=== PATIENT | female | born 1995 | race Caucasian/White ===

== ENCOUNTER 2018-07-25 13:03 | Outpatient (RCR) | payer OTHER ==
[~2018-07-25 13:03] MED LIST: MOTRIN 600600 MG/TAB PO; NO HOME MEDICATIONS; PERCOCET 325 MG1 TA2 PO; PRENATAL1 TA1 PO; TESSALON P100 MG/CAP PO; ZOFRAN INJ4 MG/2 ML IV; ZOFRAN ODT4 MG PO
== END 2018-10-23 | disposition home or self-care (01) ==
LOC: WSOH
DX: S51.801A Unspecified open wound of right forearm, initial encounter (principal); Y04.1XXA Assault by human bite, initial encounter; Y93.F9 Activity, other caregiving; Y92.59 Other trade areas as the place of occurrence of the external cause; Y99.0 Civilian activity done for income or pay

== ENCOUNTER 2022-02-28 17:49 | Emergency (ER) | payer OTHER ==
[~2022-02-28] VITALS: Ht 162.6 cm; Wt 77.3 kg
[2022-02-28 17:56] VITALS: TEMP 97.9
[2022-02-28 18:48] LABS: BASO % 0.5 % (0.0-2.0); EOS # 0.1 K/mm3 (0.0-0.7); EOS % 2.3 % (0.0-4.0); GRAN # 3.3 K/mm3 (1.4-6.5); GRAN % 57.2 % (42.2-75.2); HEMATOCRIT 38.2 % (37.0-47.0); LYMPH # 1.9 K/mm3 (1.2-3.4); MEAN CELL VOLUME 92 fl (80.0-100.0); MEAN CORPUSCULAR HEMOGLOBIN 31 pg (27-31); MEAN CORPUSCULAR HGB CONC 34 g/dl (33.0-37.0); MONO # 0.3 K/mm3 (0.1-0.6); MONO % 5.8 % (1.7-9.3); PLATELET COUNT 217 K/mm3 (130-400); RED BLOOD COUNT 4.17 M/mm3 (4.10-5.30); REDCELL DISTRIBUTION WIDTH-CV 11.8 % (11.5-14.5)
[2022-02-28 19:30] VITALS: BP 127/90; PULSE 72
== END 2022-02-28 19:30 | disposition home or self-care (01) ==
LOC: COL.ER 17:49
PROVIDERS: Physician Assistant
DX: N93.9 Abnormal uterine and vaginal bleeding, unspecified (principal); Z28.310 Unvaccinated for COVID-19